=== PATIENT | female | born 1970 | race Caucasian/White ===

== ENCOUNTER → 2021-02-05 | Outpatient (CLI) | payer MEDICARE, OTHER ==
[2021-02-05 07:47] LABS: HEMOGLOBIN 11.3 gm/dl (12.3-15.3); RED BLOOD COUNT 3.87 M/UL (4.00-5.10); WHITE BLOOD COUNT 6.2 K/UL (4.5-11.0)
[2021-02-05 08:12] LABS: BUN/CREATININE RATIO 9 (0-10)
== END ==
LOC: CT 07:13
PROVIDERS: Colon & Rectal Surgery
DX: K64.3 Fourth degree hemorrhoids (principal); I10 Essential (primary) hypertension; K21.9 Gastro-esophageal reflux disease without esophagitis; K63.89 Other specified diseases of intestine; Z85.41 Personal history of malignant neoplasm of cervix uteri
CPT/HCPCS: 36415; 80053; 85025; 85027; 86304; Q9967

== ENCOUNTER → 2021-10-07 | Outpatient (CLI) | payer MEDICARE, OTHER | LOC: CT 09-23 11:00 | DX: K64.3 Fourth degree hemorrhoids (principal); K63.89 Other specified diseases of intestine; M19.90 Unspecified osteoarthritis, unspecified site | CPT/HCPCS: 36415; 72193; 82565; 84520; Q9967 ==